=== PATIENT | male | born 1995 | race Caucasian/White ===

== ENCOUNTER 2020-07-12 23:38 | Emergency (ER) | payer OTHER ==
[~2020-07-12] VITALS: Ht 180.3 cm; Wt 63.5 kg
[2020-07-13 00:07] LABS: ABSOLUTE BASOPHILS 0.1 thou/uL (0.0-0.2); ABSOLUTE EOSINOPHILS 0.1 thou/uL (0.0-0.7); ABSOLUTE LYMPHOCYTES 1.4 thou/uL (0.8-5.3); ABSOLUTE MONOCYTES 0.6 thou/uL (0.0-1.2); ABSOLUTE NEUTROPHILS 8.2 thou/uL (1.6-8.1); BASOPHILS 0.5 %; EOSINOPHILS 1.1 %; HEMATOCRIT 47.8 % (42.0-52.0); HEMOGLOBIN 16.6 gm/dL (14.0-18.0); LYMPHOCYTES 13.9 %; MCH 31.3 pg (26.0-34.0); MCHC 34.7 g/dL (28.0-37.0); MCV 90.2 fL (80.0-100.0); MONOCYTES 5.4 %; MPV 7.2 fl. (7.2-11.1); NUCLEATED RBCS 0 /100WBC; PLATELET COUNT* 278 thou/uL (150-400); POLYS 79.1 %; RDW-CV 12.7 % (10.5-14.5); WBC 10.3 thou/uL (4.0-11.0)
[2020-07-13 00:19] LABS: CALCIUM 9.7 mg/dL (8.5-10.1); POTASSIUM 3.6 mmol/L (3.5-5.1)
[2020-07-13 00:24] LABS: ALBUMIN 4.7 g/dL (3.4-5.0)
[2020-07-13] MEDS ORDERED: ZOFRAN ODT4 MG PO (01:29)
[2020-07-13 02:30] VITALS: BP 116/59
[2020-07-14] MEDS ORDERED: LOPERAMIDE 2 MG2 M1 PO (13:37)
== END 2020-07-13 02:30 | disposition home or self-care (01) ==
LOC: M.ERS 23:38
PROVIDERS: Emergency Medicine
DX: R19.7 Diarrhea, unspecified (principal); R11.2 Nausea with vomiting, unspecified; J45.909 Unspecified asthma, uncomplicated

== ENCOUNTER 2020-07-14 11:26 | Emergency (ER) | payer OTHER ==
[~2020-07-14] VITALS: Ht 180.3 cm; Wt 63.5 kg
[~2020-07-14 11:26] MED LIST: ZOFRAN ODT4 MG PO
[2020-07-14 11:46] LABS: ABSOLUTE BASOPHILS 0.1 thou/uL (0.0-0.2); ABSOLUTE EOSINOPHILS 0.2 thou/uL (0.0-0.7); ABSOLUTE LYMPHOCYTES 1.7 thou/uL (0.8-5.3); ABSOLUTE MONOCYTES 0.4 thou/uL (0.0-1.2); ABSOLUTE NEUTROPHILS 3.5 thou/uL (1.6-8.1); BASOPHILS 1.1 %; EOSINOPHILS 2.6 %; HEMATOCRIT 48.7 % (42.0-52.0); HEMOGLOBIN 16.7 gm/dL (14.0-18.0); LYMPHOCYTES 29.2 %; MCH 31.1 pg (26.0-34.0); MCHC 34.3 g/dL (28.0-37.0); MCV 90.9 fL (80.0-100.0); MONOCYTES 6.9 %; MPV 7.1 fl. (7.2-11.1); NUCLEATED RBCS 0 /100WBC; PLATELET COUNT* 274 thou/uL (150-400); POLYS 60.2 %; RBC 5.36 mil/uL (4.50-6.00); RDW-CV 12.6 % (10.5-14.5); WBC 5.9 thou/uL (4.0-11.0)
[2020-07-14 11:54] LABS: CALCIUM 9.2 mg/dL (8.5-10.1); CREATININE 1.1 mg/dL (0.6-1.3); POTASSIUM 4.2 mmol/L (3.5-5.1)
[2020-07-14 11:58] LABS: ALBUMIN 4.7 g/dL (3.4-5.0); TOTAL BILIRUBIN 1.5 mg/dL (<0.1-1.0); TOTAL PROTEIN 8.1 g/dL (6.4-8.2)
[2020-07-14 12:07] LABS: URINE BLOOD 1+ (Negative); URINE CLARITY CLEAR; URINE COLOR YELLOW; URINE GLUCOSE-RANDOM NEGATIVE (Negative); URINE KETONES 2+ (Negative); URINE LEUKOCYTES-REFLEX NEGATIVE (Negative); URINE NITRITE-REFLEX NEGATIVE (Negative); URINE PROTEIN NEGATIVE (Negative); URINE SPECIFIC GRAVITY >= 1.030 (1.005-1.030); URINE UROBILINOGEN 0.2 E.U./dl (0.2-1.0)
[2020-07-14 12:09] LABS: URINE BILIRUBIN 2+ (Negative)
[2020-07-14 12:10] LABS: ICTOTEST (BILI CONFIRMATORY) Negative (Negative)
[2020-07-14 12:15] LABS: CASTS None Seen /LPF (None Seen); CRYSTALS None Seen /LPF (None Seen); MUCUS >6 Heavy strn/LPF (None Seen); SQUAMOUS 0-3 Few /LPF (0-3); URINE RBC 3-10 Few /HPF (0-2); URINE WBC-REFLEX 0-5 Rare /HPF (0-5)
[2020-07-14 12:16] LABS: AMP/METHAMP Negative (Negative); BARBITURATES Negative (Negative); BENZODIAZEPINES Negative (Negative); COCAINE Negative (Negative); METHADONE Negative (Negative); OPIATES Negative (Negative); PCP Negative (Negative); THC POSITIVE (Negative)
[2020-07-14] MEDS ORDERED: LOPERAMIDE 2 MG2 M1 PO (13:37)
[2020-07-14 13:40] VITALS: BP 114/65
== END 2020-07-14 13:40 | disposition home or self-care (01) ==
LOC: M.ERS 11:26
PROVIDERS: Emergency Medicine Emergency Medical Services
DX: R19.7 Diarrhea, unspecified (principal); R11.2 Nausea with vomiting, unspecified; M54.9 Dorsalgia, unspecified; J45.909 Unspecified asthma, uncomplicated; Z79.899 Other long term (current) drug therapy

== ENCOUNTER 2020-10-21 07:59 | Emergency (ER) | payer OTHER ==
[~2020-10-21] VITALS: Ht 180.3 cm; Wt 65.8 kg
[~2020-10-21 07:59] MED LIST changes: +LOPERAMIDE 2 MG2 M1 PO
[2020-10-21] MEDS ORDERED: VENTOLIN HFA 1818 GM INH (08:58)
[2020-10-21] MEDS ORDERED: TESSALON PERLE100 M1 PO (08:58)
[2020-10-21 09:09] VITALS: BP 115/71
== END 2020-10-21 09:10 | disposition home or self-care (01) ==
LOC: M.ERS 07:59
DX: U07.1 COVID-19 (principal); J45.909 Unspecified asthma, uncomplicated

== ENCOUNTER 2020-10-25 19:47 | Emergency (ER) | payer OTHER ==
[~2020-10-25] VITALS: Ht 180.3 cm; Wt 63.5 kg
[~2020-10-25 19:47] MED LIST changes: +TESSALON PERLE100 M1 PO; +VENTOLIN HFA 1818 GM INH
[2020-10-25 21:31] VITALS: BP 123/84
== END 2020-10-25 21:32 | disposition left against medical advice (07) ==
LOC: M.ERS 19:47
DX: Z53.21 Procedure and treatment not carried out due to patient leaving prior to being seen by health care provider (principal)